=== PATIENT | female | born 1945 | race Caucasian/White ===

== ENCOUNTER 2021-01-11 15:02 | Emergency (ER) | payer MEDICARE ==
[~2021-01-11] VITALS: Ht 160 cm; Wt 77.1 kg
[2021-01-11] MEDS ORDERED: METO100 PO (16:54)
[2021-01-11] MEDS ORDERED: LEVSOD100 PO (16:54)
[2021-01-11] MEDS ORDERED: VENL150ER PO (16:54)
[2021-01-11] MEDS ORDERED: BUPR150ER PO (16:54)
[2021-01-11] MEDS ORDERED: OMEP20ER PO (16:54)
[2021-01-11] MEDS ORDERED: TRELEGY ELLIPT1 EAC1 IH (16:54)
[2021-01-11] MEDS ORDERED: LOSA50 PO (16:54)
== END 2021-01-11 18:10 | disposition home or self-care (01) ==
LOC: ER 15:02
DX: S01.81XA Laceration without foreign body of other part of head, initial encounter (principal); S00.212A Abrasion of left eyelid and periocular area, initial encounter; S80.212A Abrasion, left knee, initial encounter; S50.312A Abrasion of left elbow, initial encounter; I10 Essential (primary) hypertension; E03.9 Hypothyroidism, unspecified; Z23 Encounter for immunization; W10.9XXA Fall (on) (from) unspecified stairs and steps, initial encounter
CPT/HCPCS: 12011; 70450; 90471; 90714; 99283-25